=== PATIENT | male | born 1985 | race American Indian/Alaskan Native ===

== ENCOUNTER 2019-05-06 13:49 | Emergency (ER) | payer BC ==
--- NOTE | 2019-05-06 14:04 | Event Note ---
ED Screening Note ED Screening Note: pt presents with sore throat yesterday +hurts to swallow no sick contact subjective fever PMHx asthma allergy: none This initial assessment/diagnostic orders/clinical plan/treatment(s) is/are subject to change based on patients health status, clinical progression and re- assessment by fellow clinical providers in the ED. Further treatment and workup at subsequent clinical providers discretion. Patient/guardian urged not to elope from the ED as their condition may be serious if not clinically assessed and managed. Initial orders include: rapid strep sent
[2019-05-06] MEDS ORDERED: LIDOCAINE VISCOUS 2% 15 ML ORAL LIQD PO ONE (14:54)
--- NOTE | 2019-05-06 15:14 | Emergency Department Report ---
ED ENT HPI - General Chief complaint: Sore Throat Stated complaint: SORE THROAT/STD CHECK UP Time Seen by Provider: 05/06/19 14:01 Source: patient Mode of arrival: Ambulatory Limitations: No Limitations - History of Present Illness Initial comments: 33-year-old -[place]iss male presents to the ER complaining of her sore throat. Patient states that it started last night and some itching now is painful. Patient has taken nothing for pain. Patient reports is gone for whole bag of calls. Patient states he has not eaten in 18 hours. Patient reports a past medical history of asthma. Patient denies any fever chills no nausea no vomiting. MD complaint: tooth pain Onset/Timin -: days(s) Location: throat Severity: severe Severity scale (0 -10): 10 Quality: stabbing Consistency: constant Improves with: none Worsens with: none Associated Symptoms: sore throat. denies: fever, cough, gum swelling, toothache - Related Data Previous Rx's Medication Instructions Recorded Last Taken Type Albuterol Sulfate [Ventolin HFA] 2 puff IH Q4H PRN #1 hfa.aer.ad 11/30/14 Unknown Rx Doxycycline Monohydrate 100 mg PO Q12H #14 capsule 11/30/14 Unknown Rx [Doxycycline Monohydrate CAP] Loratadine [Claritin] 10 mg PO DAILY #30 tablet 11/30/14 Unknown Rx predniSONE [Deltasone] 20 mg PO TID #15 tab 11/30/14 Unknown Rx Albuterol Sulfate [Proair 90 mcg IH Q4H PRN #1 inh 01/15/15 Unknown Rx Respiclick] ALBUTEROL Inhaler (OR & NICU) 1 puff IH PRN #1 box 05/21/15 Unknown Rx [ProAir HFA Inhaler] Prednisone [predniSONE 10 mg 10 mg PO .TAPER #1 tab.ds.pk 05/21/15 Unknown Rx (6-Day Pack, 21 Tabs)] Acetaminophen/Codeine [Tylenol #3] 1 tab PO Q6H PRN #10 tab 07/26/15 Unknown Rx Docusate Sodium [Colace] 100 mg PO BID PRN #60 capsule 07/26/15 Unknown Rx Ibuprofen [Motrin 800 MG tab] 800 mg PO Q8HR PRN #30 tablet 07/26/15 Unknown Rx Phenyleph/Mineral Oil/Petrolat 57 gm RC Q4HR #1 oint.appl 07/26/15 Unknown Rx [Preparation H Ointment] Phenylephrine HCl/Pulaski Butter 1 each RC QID #1 pack 07/26/15 Unknown Rx [Preparation H Suppository] Azithromycin [Zithromax Z-ANNABELLE] 250 mg PO DAILY #6 tab 09/25/15 Unknown Rx Albuterol Sulfate [Ventolin HFA] 2 puff IH Q4H PRN #2 hfa.aer.ad 02/12/16 Unknown Rx Allergies Allergy/AdvReac Type Severity Reaction Status Date / Time No Known Allergies Allergy Verified 02/12/16 01:46 ED Dental HPI - General Chief complaint: Sore Throat Stated complaint: SORE THROAT/STD CHECK UP Time Seen by Provider: 05/06/19 14:01 Source: patient Mode of arrival: Ambulatory Limitations: No Limitations - Related Data Previous Rx's Medication Instructions Recorded Last Taken Type Albuterol Sulfate [Ventolin HFA] 2 puff IH Q4H PRN #1 hfa.aer.ad 11/30/14 Unknown Rx Doxycycline Monohydrate 100 mg PO Q12H #14 capsule 11/30/14 Unknown Rx [Doxycycline Monohydrate CAP] Loratadine [Claritin] 10 mg PO DAILY #30 tablet 11/30/14 Unknown Rx predniSONE [Deltasone] 20 mg PO TID #15 tab 11/30/14 Unknown Rx Albuterol Sulfate [Proair 90 mcg IH Q4H PRN #1 inh 01/15/15 Unknown Rx Respiclick] ALBUTEROL Inhaler (OR & NICU) 1 puff IH PRN #1 box 05/21/15 Unknown Rx [ProAir HFA Inhaler] Prednisone [predniSONE 10 mg 10 mg PO .TAPER #1 tab.ds.pk 05/21/15 Unknown Rx (6-Day Pack, 21 Tabs)] Acetaminophen/Codeine [Tylenol #3] 1 tab PO Q6H PRN #10 tab 07/26/15 Unknown Rx Docusate Sodium [Colace] 100 mg PO BID PRN #60 capsule 07/26/15 Unknown Rx Ibuprofen [Motrin 800 MG tab] 800 mg PO Q8HR PRN #30 tablet 07/26/15 Unknown Rx Phenyleph/Mineral Oil/Petrolat 57 gm RC Q4HR #1 oint.appl 07/26/15 Unknown Rx [Preparation H Ointment] Phenylephrine HCl/Pulaski Butter 1 each RC QID #1 pack 07/26/15 Unknown Rx [Preparation H Suppository] Azithromycin [Zithromax Z-ANNABELLE] 250 mg PO DAILY #6 tab 09/25/15 Unknown Rx Albuterol Sulfate [Ventolin HFA] 2 puff IH Q4H PRN #2 hfa.aer.ad 02/12/16 Unknown Rx Allergies Allergy/AdvReac Type Severity Reaction Status Date / Time No Known Allergies Allergy Verified 02/12/16 01:46 ED Review of Systems ROS: Stated complaint: SORE THROAT/STD CHECK UP Other details as noted in HPI Comment: All other systems reviewed and negative ED Past Medical Hx - Past Medical History Previous Medical History?: Yes Hx Asthma: Yes - Surgical History Past Surgical History?: No - Social History Smoking Status: Current Every Day Smoker Substance Use Type: Alcohol - Medications Home Medications: Home Medications Medication Instructions Recorded Confirmed Last Taken Type Albuterol Sulfate [Ventolin HFA] 2 puff IH Q4H PRN #1 hfa.aer.ad 11/30/14 Unknown Rx Doxycycline Monohydrate 100 mg PO Q12H #14 capsule 11/30/14 Unknown Rx [Doxycycline Monohydrate CAP] Loratadine [Claritin] 10 mg PO DAILY #30 tablet 11/30/14 Unknown Rx predniSONE [Deltasone] 20 mg PO TID #15 tab 11/30/14 Unknown Rx Albuterol Sulfate [Proair 90 mcg IH Q4H PRN #1 inh 01/15/15 Unknown Rx Respiclick] ALBUTEROL Inhaler (OR & NICU) 1 puff IH PRN #1 box 05/21/15 Unknown Rx [ProAir HFA Inhaler] Prednisone [predniSONE 10 mg 10 mg PO .TAPER #1 tab.ds.pk 05/21/15 Unknown Rx (6-Day Pack, 21 Tabs)] Acetaminophen/Codeine [Tylenol #3] 1 tab PO Q6H PRN #10 tab 07/26/15 Unknown Rx Docusate Sodium [Colace] 100 mg PO BID PRN #60 capsule 07/26/15 Unknown Rx Ibuprofen [Motrin 800 MG tab] 800 mg PO Q8HR PRN #30 tablet 07/26/15 Unknown Rx Phenyleph/Mineral Oil/Petrolat 57 gm RC Q4HR #1 oint.appl 07/26/15 Unknown Rx [Preparation H Ointment] Phenylephrine HCl/Pulaski Butter 1 each RC QID #1 pack 07/26/15 Unknown Rx [Preparation H Suppository] Azithromycin [Zithromax Z-ANNABELLE] 250 mg PO DAILY #6 tab 09/25/15 Unknown Rx Albuterol Sulfate [Ventolin HFA] 2 puff IH Q4H PRN #2 hfa.aer.ad 02/12/16 Unknown Rx ED Physical Exam - General Limitations: No Limitations General appearance: alert, in no apparent distress - Head Head exam: Present: atraumatic, normocephalic - Eye Eye exam: Present: normal appearance - Expanded ENT Exam Expanded Mouth exam: Present: normal external inspection Throat exam: Positive: tonsillomegaly. Negative: tonsillar erythema, tonsillar exudate - Neck Neck exam: Present: normal inspection, full ROM. Absent: tenderness, lymphadenopathy - Neurological Exam Neurological exam: Present: alert, oriented X3, normal gait - Psychiatric Psychiatric exam: Present: normal affect, normal mood - Skin Skin exam: Present: warm, dry, intact, normal color. Absent: rash ED Course Vital Signs 05/06/19 14:01 Temperature 97.1 F L Pulse Rate 88 Respiratory 18 Rate Blood Pressure 125/75 O2 Sat by Pulse 99 Oximetry ED Medical Decision Making - Medical Decision Making 33-year-old -[place] male presents to the ER complaining of her sore throat. Patient states that it started last night and some itching now is painful. Patient has taken nothing for pain. Patient reports is gone for whole bag of calls. Patient states he has not eaten in 18 hours. Patient reports a past medical history of asthma. Patient denies any fever chills no nausea no vomiting. Rapid strep is negative. Patient be discharged with instructions to take Tylenol and/or Motrin as needed for pain. Critical care attestation.: If time is entered above; I have spent that time in minutes in the direct care of this critically ill patient, excluding procedure time. ED Disposition Clinical Impression: Acute tonsillitis Qualifiers: Pharyngitis/tonsillitis etiology: unspecified etiology Qualified Code(s): J03.90 - Acute tonsillitis, unspecified Disposition: TO HOME OR SELFCARE Is pt being admited?: No Does the pt Need Aspirin: No Condition: Stable Instructions: Tonsillitis (ED) Additional Instructions: Strep test was negative for strep throat. Please take Tylenol and/or Motrin or Aleve as needed for pain management. Please increase her fluid intake advance her diet as tolerated. Continue with warm salt water gargles. Follow-up with the primary care provider if his symptoms persist or gets worse. Referrals: [facility] [Provider Group] - 3-5 Days Forms: Work/School Release Form(ED)
[2019-05-06 15:44] VITALS: BP 126/68
== END 2019-05-06 15:43 | disposition home or self-care (01) ==
LOC: ED 13:49
DX: J03.90 Acute tonsillitis, unspecified (principal); J45.909 Unspecified asthma, uncomplicated; F17.200 Nicotine dependence, unspecified, uncomplicated; Z79.899 Other long term (current) drug therapy
CPT/HCPCS: 87116; 87430